=== PATIENT | female | born 1985 | race Caucasian/White ===

== ENCOUNTER 2016-06-01 05:50 | Day surgery (SDC) | payer MEDICAID ==
[~2016-06-01] VITALS: Ht 151.1 cm; Wt 60.3 kg
[2016-06-01] VITALS (13 sets, daily range): BP systolic 108–132; BP diastolic 69–89; PULSE 50–66; RESP 13–28; Ht 151.1 cm; Wt 60.3 kg
[2016-06-01] MEDS ORDERED: BUPIVACAINE 0.25%/EPI (SDV) 30 ML INJ ONE (07:02)
[2016-06-01] MEDS ORDERED: BUPIVACAINE 0.25%/EPI (SDV) 30 ML INJ INJ ONE (07:05)
[2016-06-01] MEDS ORDERED: FENTAnyl 50 MCG/ML VIAL ONE (07:48)
[2016-06-01] MEDS ORDERED: MIDAZOLAM 1 MG/ML 2 ML INJ ONE (07:49)
[2016-06-01] MEDS ORDERED: ONDANSETRON 4 MG INJ ONE (08:42)
[2016-06-01] MEDS ORDERED: GLYCOPYRROLATE 0.4 MG INJ ONE (08:42)
[2016-06-01] MEDS ORDERED: CEFAZOLIN 1 GM INJ ONE (08:42)
[2016-06-01] MEDS ORDERED: LIDOCAINE 2% (SDV) 5 ML INJ ONE (08:42)
[2016-06-01] MEDS ORDERED: PROPOFOL 20 ML ONE (08:42)
[2016-06-01] MEDS ORDERED: NEOSTIGMINE 3 MG/3 ML SYRINGE ONE (08:42)
[2016-06-01] MEDS ORDERED: ROCURONIUM 50 MG INJ ONE (08:42)
[2016-06-01] MEDS ORDERED: DIPHENHYDRAMINE 50 MG INJ IV PRN (09:00)
[2016-06-01] MEDS ORDERED: MEPERIDINE 25 MG INJ IV PRN (09:00)
[2016-06-01] MEDS ORDERED: morphine (1 MG/ML) 10ML SYRINGE IV PRN (09:00)
[2016-06-01] MEDS ORDERED: FENTAnyl 50 MCG/ML VIAL IV PRN (09:00)
[2016-06-01] MEDS ORDERED: ONDANSETRON 4 MG INJ IV PRN (09:00)
--- NOTE | 2016-06-02 04:30 | OPR ---
DATE OF OPERATION: PREOPERATIVE DIAGNOSIS: The patient desires permanent sterilization. POSTOPERATIVE DIAGNOSIS: The patient desires permanent sterilization. OPERATION PERFORMED: Laparoscopic tubal fulguration and transection. SURGEON: Jay Garces MD ESTIMATED BLOOD LOSS: Minimal. COMPLICATIONS: None. FINDINGS: Normal tubes and ovaries bilaterally. CONSENT: Please see preop H and P that was done in my office. DESCRIPTION OF PROCEDURE: She was taken to the operating room and general anesthesia was induced. She was prepped and draped in the usual sterile fashion in dorsal lithotomy position. Surgical time out was done. The patient was identified. Anterior lip of the cervix was grasped using a single t ooth tenaculum and a HUMI was inserted in normal fashion. The tenaculum was removed. There was no bleeding. The patient already had a Wood catheter inserted. Gloves were changed and local anesthe dylan was injected, 0.25% Marcaine with epinephrine, and a small periumbilical incision was made and t he blunt trocar was inserted in normal fashion. Intraperitoneal position was confirmed and pneumope ritoneum was obtained. A second trocar was inserted above the pubic symphysis after local anesthesi a was injected under direct visualization of the laparoscope in normal fashion. A 5 cm mid ampullar y region of the right tube was coagulated. Complete desiccation of the entire diameter of the tube was visualized. The coagulated portion was cut. There was no bleeding. Same procedure was done on the contralateral side. Pneumoperitoneum was released and all instruments removed and the skin helga sed using 4-0 Monocryl. All counts were correct and HUMI was removed. The patient taken to recover y room in stable condition. Dictated By: JAY RILEY/MAYO Conf#: [id number] DID#: [id number]
== END 2016-06-01 11:15 | disposition home or self-care (01) ==
LOC: SDS 05:50
PROVIDERS: ATTEND Specialist
DX: Z30.2 Encounter for sterilization (principal)
CPT/HCPCS: 58671; 84703; J0690; J2175; J2250; J2405; J2710; J3010; Z7512; Z7610